=== PATIENT | male | born 1995 | race Asian ===

== ENCOUNTER 2017-09-30 18:53 | Emergency (ER) | payer OTHER ==
[~2017-09-30] VITALS: Ht 182.9 cm; Wt 63.3 kg
[2017-09-30 18:59] VITALS: Ht 182.9 cm; Wt 63.3 kg
[2017-09-30] MEDS ORDERED: HYDROmorphone INJ 1 MG/ML SYR IV STA (19:14)
[2017-09-30] MEDS ORDERED: ONDANSETRON INJ 2 MG/ML 2 ML VIAL IV STA (19:14)
[2017-09-30] MEDS ORDERED: SODIUM CHLORIDE 0.9% 1000ML 1,000 ML IV STA (19:14)
[2017-09-30] MEDS ORDERED: OPTIRAY 320 IV PRN (19:30)
[2017-09-30 19:35] VITALS: O2SAT 97
[2017-09-30 19:48] LABS: BASO % 0.1 %; BASO ABS # 0.02 K/uL (0-0.2); EOS % 0.1 %; EOS ABS # 0.01 K/uL (0-0.5); HEMATOCRIT 46.6 % (42-52); HEMOGLOBIN 16.3 g/dL (14.0-18.0); IG# 0.05 K/uL (0.00-0.02); MEAN CELL VOLUME 88.4 fL (80-100); MEAN CORPUSCULAR HEMOGLOBIN 30.9 pg (25-34); MEAN PLATELET VOLUME 10.7 fL (7.4-10.4); MONO % 6.1 %; NEUT % 88.4 %; PLATELET COUNT 230 K/uL (130-400); RED CELL DISTRIBUTION WIDTH CV 12.3 % (11.5-14.5); RED CELL DISTRIBUTION WIDTH SD 39.3 fL (36.4-46.3); WHITE BLOOD COUNT 18.08 K/uL (4.8-10.8)
[2017-09-30 20:06] LABS: ALBUMIN 4.7 gm/dl (3.4-5.0); ALT/SGPT 19 U/L (12-78); BLOOD UREA NITROGEN 14 mg/dl (7-18); CALCIUM 9.1 mg/dl (8.5-10.1); CARBON DIOXIDE 24 mmol/L (21-32); CREATININE 1.34 mg/dl (0.60-1.40); GLUCOSE 136 mg/dl (70-99); POTASSIUM 3.3 mmol/L (3.5-5.1); SODIUM 134 mmol/L (136-145)
[2017-09-30 20:11] LABS: ALKALINE PHOSPHATASE 67 U/L (45-117); AST/SGOT 22 U/L (15-37); CKMB < 0.5 ng/ml (0.5-3.6); TOTAL PROTEIN 8.5 gm/dl (6.4-8.2)
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
[2017-09-30 21:30] VITALS: TEMP 36.6
[2017-09-30] MEDS ORDERED: OXYC-57 PO (21:49)
[2017-09-30] MEDS ORDERED: PERCOCET HOME PACK PO STA (21:50)
[2017-09-30 22:43] VITALS: BP 125/62; PULSE 100; O2SAT 97
== END 2017-09-30 22:53 | disposition home or self-care (01) ==
LOC: C.EDC 18:58
DX: T76.11XA Adult physical abuse, suspected, initial encounter (principal); S20.219A Contusion of unspecified front wall of thorax, initial encounter; H11.31 Conjunctival hemorrhage, right eye; Y04.0XXA Assault by unarmed brawl or fight, initial encounter; F17.200 Nicotine dependence, unspecified, uncomplicated